=== PATIENT | male | born 1970 | race Caucasian/White ===

== ENCOUNTER 2018-08-03 10:53 | Inpatient (IN) | payer OTHER ==
[~2018-08-03] VITALS: Ht 177.8 cm; Wt 81.6 kg
[2018-08-09] MEDS ORDERED: HYOSCYAMINE0.125 M1 SL (11:12)
[2018-08-09] MEDS ORDERED: PERCOCET 5-3251 EACH PO (11:13)
[2018-08-09] MEDS ORDERED: GAS RELIEF125 MG PO (11:13)
[2018-08-09] MEDS ORDERED: KETO10TA2 PO (11:14)
== END 2018-08-09 12:06 | disposition home or self-care (01) | DRG 330 ==
LOC: ER 10:53 → SURH 15:15
PROVIDERS: ADMIT Surgery
PROC: 07TC4ZZ Resection of Pelvis Lymphatic, Percutaneous Endoscopic Approach (ICD-10-PCS; 2018-08-05)
PROC: 0DJD8ZZ Inspection of Lower Intestinal Tract, Via Natural or Artificial Opening Endoscopic (ICD-10-PCS; 2018-08-05)
PROC: 0DTN4ZZ Resection of Sigmoid Colon, Percutaneous Endoscopic Approach (ICD-10-PCS; principal; 2018-08-05 07:00)
DX: C19 Malignant neoplasm of rectosigmoid junction (principal); K62.5 Hemorrhage of anus and rectum; G40.89 Other seizures

== ENCOUNTER 2020-01-06 06:53 | Day surgery (SDC) | payer OTHER ==
[~2020-01-06 06:53] MED LIST: GAS RELIEF125 MG PO; HYOSCYAMINE0.125 M1 SL; KETO10TA2 PO; PERCOCET 5-3251 EACH PO
== END 2020-01-06 10:35 | disposition home or self-care (01) ==
LOC: AMB-ENDOS 06:53
PROVIDERS: ATTEND Surgery
DX: K62.89 Other specified diseases of anus and rectum (principal)

== ENCOUNTER 2021-04-12 09:54 | Day surgery (SDC) | payer OTHER | END 2021-04-13 16:00 | disposition home or self-care (01) | LOC: AMB-ENDOS 09:54 | PROVIDERS: ATTEND Surgery | DX: K62.89 Other specified diseases of anus and rectum (principal); K64.8 Other hemorrhoids; Z20.822 Contact with and (suspected) exposure to COVID-19 ==